=== PATIENT | female | born 1990 | race African-American/Black ===

== ENCOUNTER → 2023-08-07 17:34 | Emergency (ER) | payer MEDICAID, SELFPAY ==
--- NOTE | ~2023-08-07 | CT_ITS ---
EXAMINATION: CT abdomen pelvis w con INDICATION: Left lower quadrant abdominal pain TECHNIQUE: Computed tomographic images of the abdomen and pelvis were obtained after the administrati on of 100 cc of Omnipaque 350 intravenous contrast. The dose-length product (DLP) was 1473.22 mGy-cm. Automated exposure control and iterative reconstruction technique were employed. COMPARISON: None available FINDINGS: There are minimal airspace opacities of the visualized lung bases. The heart size is normal . The liver, spleen, pancreas, gallbladder, and adrenal glands are normal. The kidneys are unremarkab le. No pathologically enlarged abdominal or pelvic lymph nodes are identified. No free intraperitonea l gas or evidence of bowel obstruction. The appendix is normal. There is a tiny umbilical hernia cont aining fat. IMPRESSION: 1. No CT correlate for the patient's symptoms. 2. Minimal airspace opacities of the visualized lung bases, consistent with atelectasis versus pneumo li. Reviewed, dictated and finalized at location F. IMPRESSION: 1. No CT correlate for the patient's symptoms. 2. Minimal airspace opacities of the visualized lung bases, consistent with ate lectasis versus pneumonia.
[2023-08-07 17:31] VITALS: BP 157/102; PULSE 97; RESP 14; TEMP 36.8; O2SAT 100
--- NOTE | 2023-08-07 17:54 | PC.NURSE ---
pt unable to urinate at this time. educated pt to use call light with any urge to urinate.
[2023-08-07 18:00] LABS: Basophils Percent Auto 0.3 % (0.2-1.2); Eosinophils Absolute Auto 0.2 K/mm3 (0-0.3); Hematocrit 32.9 % (37.0-47.0); Hemoglobin 10.2 g/dL (12.0-15.0); Immature Granulocyte Absolute 0.04 K/mm3 (0.00-0.031); Immature Granulocyte Percent A 0.4 % (0-0.5); Lymphocytes Absolute Auto 1.91 K/mm3 (0.9-3.2); Lymphocytes Percent Auto 18.9 % (18.3-44.2); Mean Corpuscular Hemoglobin 26.6 pg (26-34); Mean Corpuscular Volume 85.7 fl (80-100); Mean Platelet Volume 9.3 fl (7.4-10.4); Monocytes Absolute Auto 0.8 K/mm3 (0.1-0.6); Monocytes Percent Auto 7.6 % (2.6-8.5); Neutrophils Absolute Auto 7.2 K/mm3 (1.3-6.7); Neutrophils Percent Auto 70.8 % (45.5-73.1); Platelet Count Result 365 k/mm3 (150-375); Red Blood Count 3.84 M/mm3 (4.2-5.4); Red Cell Distribution Width 14.4 % (11.5-14.5); White Blood Count 10.1 K/mm3 (4.5-10.0)
[2023-08-07 18:01] VITALS: BP 139/93; PULSE 87; RESP 19; O2SAT 100
[2023-08-07 18:10] LABS: Alanine Aminotransferase 13 U/L (6-35); Albumin Level 3.9 g/dL (3.5-5.1); Alkaline Phosphatase 96 U/L (38-126); Anion Gap 6 mmol/L (8-16); Aspartate Amino Transferase 17 U/L (14-36); Bilirubin,Total 0.3 mg/dL (0.2-1.3); Blood Urea Nitrogen 15 mg/dL (7-17); Calcium 9.4 mg/dL (8.4-10.2); Carbon Dioxide 27 mmol/L (22-30); Chloride 103 mmol/L (98-107); Estimated CRCL calculation 93 ml/min; Estimated Glomerular Filt Rate > 60; Glucose 125 mg/dL (65-110); Lipase 51 U/L (23-300); Potassium 3.8 mmol/L (3.4-5.0); Sodium 136 mmol/L (137-145)
--- NOTE | 2023-08-07 18:21 | ED.ABDPAIN ---
HPI - Abdominal Pain General Chief Complaint: Abdominal Pain Stated Complaint: abd pain Time Seen by Provider: 08/07/23 17:52 History of Present Illness HPI narrative: [age] old female presenting to the emergency department for evaluation of nausea vomiting and left lower quadrant abdominal pain. Patient states she also has had some vaginal bleeding. Related Data Allergies Allergy/AdvReac Type Severity Reaction Status Date / Time orange juice Allergy Anaphylaxis Verified 08/07/23 18:19 risperidone Allergy Anaphylaxis Verified 08/07/23 18:19 Review of Systems Review of Systems: All systems reviewed & are unremarkable except as noted in HPI and below Exam Narrative: APPEARANCE: Well appearing, no pain, no distress, well-nourished. HEAD: normocephalic, atraumatic. EYES: PERRLA/EOMI, conjunctivae clear. NOSE: Normal no drainage EARS:TMS clear with good light reflex. THROAT: Pharynx clear, no exudate. NECK: Supple. No adenopathy, no masses. RESPIRATORY: Airway patent, respirations nonlabored. Clear to auscultation bilaterally, no rales, rhonchi, wheezing. CARDIOVASCULAR: Regular rate and rhythm without murmurs rubs or gallops. ABDOMINAL: Diffuse lower abdominal tenderness to palpation MUSCULOSKELETAL: Moves all extremities. Strength/ROM intact, No edema, No calf tenderness. NEURO: Alert. Cranial nerves II through XII intact. grossly intact Course Course Emergency Course: Patient follow-up improved with treatment and was discharged Vital Signs Vital signs: Vital Signs Temperature 98.2 F 08/07/23 17:31 Pulse Rate 97 08/07/23 17:31 Respiratory Rate 14 08/07/23 17:31 Blood Pressure 157/102 H 08/07/23 17:31 Pulse Oximetry 100 08/07/23 17:31 Oxygen Delivery Room Air 08/07/23 17:31 Temperature 98.2 F 08/07/23 17:31 Pulse Rate 74 08/07/23 20:59 Respiratory Rate 15 08/07/23 20:59 Blood Pressure 146/77 H 08/07/23 20:59 Pulse Oximetry 99 08/07/23 20:59 Oxygen Delivery Room Air 08/07/23 17:31 MDM - Abdominal Pain MDM Narrative Medical decision making narrative: 33 old female presenting emergency department for evaluation of lower abdominal pain. Patient is afebrile with no leukocytosis and a stable hemoglobin of 10.2. No acute abnormalities on the patient's CMP. CT scan showed no acute abnormality. Patient was discharged home with instructions for [id number] medications. All questions concerns were addressed. Differential Diagnosis Differential diagnosis: Likely abdominal pain, acute appendicitis, constipation, diverticulitis, gastroenteritis and small bowel obstruction Lab Data Attestation: I reviewed the patient's lab results. 08/07/23 17:44 08/07/23 17:44 Labs: Lab Results 08/07/23 08/07/23 Range/Units 17:44 19:56 WBC 10.1 H (4.5-10.0) K/mm3 RBC 3.84 L (4.2-5.4) M/mm3 Hgb 10.2 L (12.0-15.0) g/dL Hct 32.9 L (37.0-47.0) % MCV 85.7 (80-100) fl MCH 26.6 (26-34) pg MCHC 31.0 L (32-36) g/dl RDW 14.4 (11.5-14.5) % Plt Count 365 (150-375) k/mm3 MPV 9.3 (7.4-10.4) fl Immature Gran % (Auto) 0.4 (0-0.5) % Neut % (Auto) 70.8 (45.5-73.1) % Lymph % (Auto) 18.9 (18.3-44.2) % [place] % (Auto) 7.6 (2.6-8.5) % Eos % (Auto) 2.0 (0-4.4) % Baso % (Auto) 0.3 (0.2-1.2) % Lymph # (Auto) 1.91 (0.9-3.2) K/mm3 [place] # (Auto) 0.8 H (0.1-0.6) K/mm3 Eos # (Auto) 0.2 (0-0.3) K/mm3 Baso # (Auto) 0.0 (0.0-0.1) K/mm3 Abs Immat Gran (auto) 0.04 H (0.00-0.031) K/mm3 Absolute Neuts (auto) 7.2 H (1.3-6.7) K/mm3 Absolute Nucleated RBC 0.000 (0.0-0.012) K/mm3 Nucleated RBC % 0.0 (0.0-0.2) % Sodium 136 L (137-145) mmol/L Potassium 3.8 (3.4-5.0) mmol/L Chloride 103 (98-107) mmol/L Carbon Dioxide 27 (22-30) mmol/L Anion Gap 6 L (8-16) mmol/L BUN 15 (7-17) mg/dL Creatinine 1.10 H (0.7-1.0) mg/dL Estim Creat Clear Calc 93 ml/min Estim
--- NOTE | 2023-08-07 18:42 | PC.NURSE ---
pt ambulated to bathroom again and was unable to urinate. pt still declines straight cath at this time
--- NOTE | 2023-08-07 19:24 | PC.NURSE ---
care and report given to SISSY Cervantes. all questions answered.
[2023-08-07 20:15] LABS: Bacteria Urine Rare /hpf; Need Manual Microscopic Reviewed; Non Pathogenic Casts 0-2; RBC Urine >100 /hpf (0-2); Squamous Epithelial Cell Urine None Seen /hpf (Few)
[2023-08-07 20:16] LABS: Appearance Urine Cloudy (Clear); Bilirubin Urine Negative (Negative); Blood Urine 3+ (Negative); Glucose Urine UA Negative (Negative); Ketones Urine Negative (Negative); Leukocyte Esterase Ur 1+ LEU/UL (Negative); Nitrate Urine Negative (Negative); Protein Urine 1+ mg/dL (Negative); Specific Grav Ur 1.021 (1.001-1.035); Urobilinogen Urine 0.2 mg/dL (<2.0); pH Urine 5.5 (5.0-9.0)
[2023-08-07 20:17] LABS: Add Urine Microscopic? YES; Color Urine Light Red (Yellow)
[2023-08-07 20:59] VITALS: BP 146/77; PULSE 74; RESP 15; O2SAT 99
== END ==
PROVIDERS: Emergency Provider Emergency Medicine
DX: R10.32 Left lower quadrant pain (principal); R91.8 Other nonspecific abnormal finding of lung field
CPT/HCPCS: 36415; 74177; 80053; 81025; 83690; 85025; 87086; 87088; 99284; Q9967